=== PATIENT | female | born 1980 | race Caucasian/White ===

== ENCOUNTER 2021-08-27 20:53 | Inpatient (IN) | payer OTHER ==
[~2021-08-27] VITALS: Ht 170.2 cm; Wt 81.0 kg
[~2021-08-27 20:53] MED LIST: CEPHALEXIN500 MG PO; IBUPROFEN200 M1 PO; TRAMADOL HCL50 MG PO
[2021-08-27] MEDS ORDERED: CLEOCIN HCL300 MG PO (21:19)
--- NOTE | 2021-08-27 23:39 | NUR ---
REPORT RECIEVED FROM PATRIC WHATLEY. PATIENT IS BEING TRANSPORTED TO THE CRITICAL CARE UNIT.
--- NOTE | 2021-08-28 00:42 | NUR ---
PATIENT ASSESSMENT COMPLETE. BOLUS OF LR RUNNING AT 500 MLS/HR. VANCO RUNNING AT 270 MLS/HR. IV SITES PATENT. PATIENT IS ALERT AND ORIENTED X4. LUNG SOUNDS ARE CLEAR THROUGHOUT. OXYGEN SATURATIONS AND RR ARE WNL. HEART RATE IS SINUS TACH AND PATIENT IS AFEBIRLE. DENIES SHORTNESS OF BREATH. PATIENT IS IN 9/10 PAIN FROM LEFT FOOT. LEFT FOOT HAS 2+ PITTING EDEMA. 11 CM REDDENED AREA. SKIN INTACT AND DRY. PICTURE OF WOUND IN THE CHART. CMST INTACT. PRN TORADOL GIVEN FOR PAIN. URINE IS CLEAR AND YELLOW. PATIENT DENIES NASEAU. BOWEL TONES ARE ACTIVE. PATIENT EDUCATED ON DIABETES. PATIENT STATES SHE HAS NOT TAKEN HER ORAL DIABETICS FOR OVER A YEAR NOW. BLOOD SUGAR WAS 344 AND GIVEN INSULIN PER SLIDING SCALE. PLAN OF CARE UPDATED. NO QUESTIONS AT THIS TIME. CALL LIGHT WITHIN REACH NO FUTHER NEEDS.
--- NOTE | 2021-08-28 04:00 | NUR ---
PATIENT ASSESSMENT COMPLETE. LR RUNNING AT 125 MLS/HR. BLOOD SUGAR WAS WNL. ALERT AND ORIENTED X4. LUNG SOUNDS ARE CLEAR THROUGHOUT. RR AND OXYGEN SATURATIONS ARE WNL. DENIES SHORTNESS OF BREATH. PATIENT COMPLAINS OF 8/10 PAIN IN LEFT FOOT. PRN TYLENOL GIVEN. PATIENT ALSO IS FEELING NAUSEOUS. PRN ZOFRAN GIVEN. PATIENT LEFT FOOT HAS GENERALIZED EDEMA. PULSES FELT STRONG. CALF TENDERNESS NOTED. AREA IS STILL REDDENED. CMST INTACT. AFEBRILE. URINE OUTPUT IS CLEAR AND YELLOW. BOWEL TONES ACTIVE. PLAN OF CARE UPDATED. NO QUESTIONS AT THIS TIME. CALL LIGHT WITHIN REACH NO FUTHER NEEDS.
--- NOTE | 2021-08-28 06:00 | NUR ---
PATIENT RESTING IN BED. BREATHING IS EQUAL AND UNLABORED. PATIENT SAYS PAIN AND NASEAU HAVE DECREASED. CALL LIGHT WITHIN REACH NO FUTHER NEEDS.
--- NOTE | 2021-08-28 07:23 | NUR ---
PATIENT IS DIAPHORETIC. LINENS CHANGED. PATIENT UP AND MOVING EASILY.
--- NOTE | 2021-08-28 07:57 | NUR ---
REPORT RECEIVED FROM CHIP SPIVEY. PT AWAKE SITTING UP IN BED. PT ASKED IF SHE IS HAVING ANY PAIN RIGHT NOW, SHE STATES, "NO, ITS NOT TOO BAD RIGHT NOW." PT GIVEN MENU AND INSTRUCTIONS FOR ORDERING BREAKFAST.
--- NOTE | 2021-08-28 08:10 | NUR ---
ASSESSMENT DONE, PT HAS LEFT LEG ELEVATED ON PILLOWS. CMS INTACT, REDNESS NOTED TO LLE WITH AREA MARKED BY PATIENT. IVF INFUSING. PT DENIES NEED FOR PAIN MEDICATION AT THIS TIME.
--- NOTE | 2021-08-28 09:41 | NUR ---
IN TO GIVE PT HER BREAKFAST, PT SITTING UP IN BED WITH LLE ELEVATED STILL. DENIES NEEDS.
--- NOTE | 2021-08-28 12:15 | NUR ---
PT GIVEN 15MG TORADOL FOR 7/10 LLE PAIN, LEG REMAINS ELEVATED UP ON PILLOWS.
--- NOTE | 2021-08-28 12:30 | NUR ---
PT SITTING UP TO EAT BREAKFAST, MOTHER IN ROOM TO SEE PT. PT DENIES NEEDS AT THIS TIME.
--- NOTE | 2021-08-28 14:20 | NUR ---
PT UP TO BATHROOM WITH ASSIST, HR UP TO 120'S WHILE UP. VOIDED 900ML THEN BACK TO BED.
--- NOTE | 2021-08-28 15:30 | NUR ---
INTO PATIENT ROOM. PATIENT RESTING IN BED WATCHING TV. PATIENT STATES SHE LIVES IN A HOME WITH HER SO SCOUT AND HER CHILDREN. PATIENT DENIES ANY NEED FOR DME. PATIENT STATES HER MOTHER AISHA ([phone]) IS CURRENTLY VISITING FROM [place]. PATIENT DENIES ANY FINANCIAL NEEDS AT THIS TIME. PATIENT STATES SHE HAS SEEN [facility] IN THE PAST, BUT HAS NOT SEEN A PRIMARY IN SOME TIME. ADVISED PATIENT THAT SHE WILL NEED TO FOLLOW UP WITH A PCP AT DISCHARGE. DEMOGRAPHIC INFORMATION REJI WILL CONTINUE TO FOLLOW UP WITH PATIENT DURING HER VISIT.
--- NOTE | 2021-08-28 16:18 | EKG ---
[facility] [address] [facility] [place], [place] [address] Signed Sinus tachycardia Otherwise normal ECG No previous ECGs available Confirmed by DHEERAJ SCHULTZ MD ([id number]) on 08/28/2021 4:18:16 PM Electronically Signed By: DHEERAJ SCHULTZ MD 08/28/21 1618 PATIENT NAME: JAROCHO RICHARD Electrocardiogram DATE OF : 82 PHYSICIAN: DHEERAJ SCHULTZ MD REPORT #: [id number] REPORT IS CONFIDENTIAL AND NOT TO BE RELEASED WITHOUT AUTHORIZATION
--- NOTE | 2021-08-28 16:48 | NUR ---
PT UP TO VOID THEN BACK TO BED, TYLENOL GIVEN, MOTHER AT BEDSIDE.
--- NOTE | 2021-08-28 16:51 | NUR ---
MED REC COMPLETE
--- NOTE | 2021-08-28 18:45 | NUR ---
New admit to medical floor from CCU. Patient alert and oriented x4. Patient reports pain is tolerable. IV patent. Patient oriented to room and call light.
--- NOTE | 2021-08-28 19:20 | NUR ---
REPORT RECEIVED FROM DAY SHIFT RN. PT LYING IN BED ALERT AND ORIENTED. LEFT LEG ELEVATED ON PILLOWS. UP TO BR WITH SBA. GAIT STEADY. PT WILL CALL WHEN READY TO GO BACK TO BED. WHITE BOARD UPDATED.
--- NOTE | 2021-08-28 19:41 | NUR ---
CALL LIGHT ANSWERED. SBA WITH FWW FROM RESTROOM TO BED 250 ML VOID AND MEDIUM SOFT BM. pt CHANGED TO SHORTS, TANK TOP AT THIS TIME FOR COMFORT. TEMPERATURE IN ROOM ADJUSTED. ICE WATER REFILLED. IV SITE FLUSHED WNL, IVF INFUSING. CALL LIGHT IN REACH.
--- NOTE | 2021-08-28 22:00 | NUR ---
EVENING ASSESSMENT COMPLETE. SCHEDULED MEDS ADMINISTERED PER EMAR. PT REPORTS PAIN IS TOLERABLE, DOES NOT WANT PRN FOR PAIN AT THIS TIME. DENIES NAUSEA. LLE ELEVATED ON PILLOWS. SKIN RED AND WARM. NO OPEN AREAS NOTED. RESTING HR 100'S. PT AFEBRILE. PT DENIES QUESTIONS OR CONCERNS. FRESH DRINKS PROVIDED. CALL LIGHT IN REACH.
--- NOTE | 2021-08-29 00:11 | NUR ---
ANSWERED CALL LIGHT. SBA TO THE BATHROOM AND BACK TO BED USING WALKER. PATIENT C/O HEADACHE AND FOOT HURT. PRIMARY RN DUONG NOTIFIED.
--- NOTE | 2021-08-29 00:28 | NUR ---
HAND BLOCKER REPORTS TO THIS RN PT C/O LEFT FOOT AND HEADACHE PAIN. PRN ADMINISTERED FOR PAIN PER EMAR. LLE ELEVATED. NO FURTHER NEEDS.
--- NOTE | 2021-08-29 02:13 | NUR ---
IV ABX INFUSING WNL. SLIDING SCALE INSULIN ADMINISTERED FOR BS 200. PT REPORTS SHE IS RESTING WELL. DENIES PAIN OR NAUSEA. NO FURTHER NEEDS AT THIS TIME.
--- NOTE | 2021-08-29 04:59 | NUR ---
PT RESTING IN BED WITH EYES CLOSED. RESPIRATIONS EVEN. CALL LIGHT IN REACH.
--- NOTE | 2021-08-29 06:45 | NUR ---
VS AND I&O COMPLETE. PRN FOR PAIN ADMINISTERED PER EMAR FOR 03/18 LLE/HEADACHE PAIN. LLE ELEVATED ON PILLOWS. REDNESS, EDEMA, AND WARMTH NOTED. UNCHANGED FROM PREVIOUS ASSESSMENT. FRESH WATER PROVIDED. PT DENIES FURTHER NEEDS. CALL LIGHT IN REACH.
--- NOTE | 2021-08-29 08:55 | NUR ---
Toradol 30mg IVP admin for reports of 3/10 left foot pain.
--- NOTE | 2021-08-29 10:40 | NUR ---
PATIENT IN BED WATCHING TV, FAMILY IN ROOM. VITALS AND I&O'S CHARTED. FRESH WATER GIVEN. CALL LIGHT IN REACH. NO FURTHER NEEDS AT THIS TIME.
--- NOTE | 2021-08-29 11:24 | NUR ---
Patient resting in bed with left foot elevated. Patient reports her pain is tolerable in LLE. LLE continues to be swollen and red. IV site patent. Fluids infusing per provider order. Patient has no needs. Personal supplies and call light within reach.
--- NOTE | 2021-08-29 13:09 | NUR ---
PT ALERT, ORIENTED AND SITTING UP IN BED WATCHING TV.PT IS PLEASANT, HAS NEVER DEALT WITH THIS BEFORE. GAVE ENCOURAGEMENT, G.POST AND WILL FOLLOW NEEDED
--- NOTE | 2021-08-29 14:07 | NUR ---
PATIENT IN BED RESTING. VITALS AND I&O'S CHARTED. CALL LIGHT IN REACH. NO FURTHER NEEDS AT THIS TIME.
--- NOTE | 2021-08-29 17:00 | NUR ---
Spoke with pt and needs at this time are for a PCP and glucometer. [facility] by Daryl Chawla. She is aware he has moved. She would like to see Dr. Hurst and I will fax her chart and request she can establish care with him. Chart faxed to [facility]. Will follow up tomorrow. Called Nir in Pharm as pt is Type II diabetic and in need of a glucometer. He will see her and give her one.
--- NOTE | 2021-08-29 17:48 | NUR ---
Toradol 30mg ivp admin for reports of 7/10 LLE/headache pain.
--- NOTE | 2021-08-29 19:22 | NUR ---
REPORT RECEIVED FROM DAY SHIFT RN. PT LYING IN BED ALERT AND ORIENTED. DENIES NEEDS AT THIS TIME. CALL LIGHT IN REACH. WHITE BOARD UPDATED.
--- NOTE | 2021-08-29 19:59 | NUR ---
EVENING ASSESSMENT COMPLETE. IV ABX INFUSING WNL. PT DENIES PAIN WITH INFUSION. REPORTS PAIN IS TOLERABLE AT THIS TIME. DENIES NAUSEA. LLE ELEVATED ON PILLOWS. REDNESS, WARMTH, AND EDEMA NOTED. CMS INTACT. TEMP 98.9. HR 100'S. PT DENIES QUESTIONS OR CONCERNS. CALL LIGHT IN REACH.
--- NOTE | 2021-08-30 00:10 | NUR ---
PT RESTING IN BED WITH EYES CLOSED. RESPIRATIONS EVEN. CALL LIGHT IN REACH.
--- NOTE | 2021-08-30 02:13 | NUR ---
PT UP TO BR WITH FWW TO VOID AND HAVE MEDIUM SOFT BM. GAIT STEADY. BACK TO BED. PRN FOR LEFT FOOT/HEADACHE PAIN ADMINISTERED PER EMAR. IV ABX INFUSING INFUSING WNL. PT DENIES PAIN WITH INFUSION. WARM BLANKET AND FRESH WATER PROVIDED. PT DENIES FURTHER NEEDS. CALL LIGHT IN REACH.
--- NOTE | 2021-08-30 04:00 | NUR ---
IV ABX COMPLETE. PT SL PER ORDER. PT UP TO AMB ONCE AROUND NURSING UNIT WITH FWW. GAIT STEADY. PATRICK WELL. BACK TO BED. NO FURTHER NEEDS.
--- NOTE | 2021-08-30 06:08 | NUR ---
VS AND I&O COMPLETE. TEMP 99.0. PT DENIES PAIN AT THIS TIME. LLE ELEVATED ON PILLOWS. NO FURHTER NEEDS. CALL LIGHT IN REACH.
--- NOTE | 2021-08-30 07:05 | NUR ---
this rn received report from thaddeus alcala. pt appears to be resting with respirations noted
--- NOTE | 2021-08-30 08:02 | NUR ---
PATIENT IS SLEEPING IN BED. DID NOT DISTURB AT THIS TIME. CALL LIGHT IN REACH.
--- NOTE | 2021-08-30 08:29 | NUR ---
this rn in pts room to give morning insulin. pt resting but awakens nicely. all needs met this am.
--- NOTE | 2021-08-30 09:25 | NUR ---
THIS RN IN PTS ROOM TO GIVE PT HER DOSE OF VANCO. PT SITTING UP IN BED. PT REPORTS THAT HER PAIN IS 5/10 IN HER LEFT FOOT, THIS LEVEL IS TOLERABLE FOR PT AND SHE IS NOT REQUESTING PAIN MEDS AT THIS TIME. PTS FOOT APPEARS RED AND SLIGHTLY SWOLLEN, PT REPORTS THAT IT LOOKS IMPROVED AT THIS TIME. PT REQUESTING A SHOWER FOR AFTER THE INFUSION. THIS CAN BE ARRAGNGED. PT HAS NO OTHER STATED NEEDS AT THIS TIME. CALL LIGHT WITHIN REACH
--- NOTE | 2021-08-30 11:45 | NUR ---
byron Schroeder scheduled with Dr. Hurst for SaturdaySep 04 at 1 pm to establish care. Pharmacy will provide a glucometer for her. She denies needs states she is feeling better.
--- NOTE | 2021-08-30 12:53 | NUR ---
PATIENT TOOK A SHOWER AND IS BACK RESTING IN BED. ATE 100% OF HER LUNCH. FRESH ICE WATER RECIEVED. SHE DOES NOT NEED ANYTHING ELSE AT THIS TIME. CALL LIGHT IN REACH.
--- NOTE | 2021-08-30 14:00 | NUR ---
THIS RN IN PTS ROOM TO GIVE SCHEDULED VANCO. PT APPEARS TO BE RESTING BUT AWAKENS TO DOOR OPENING. PT STATES THAT SHE IS DOING WELL JUST SLEEPY. THIS RN STARTED INFUSION, IV FLUSHES WELL, PROVIDED PT WITH WARM BLANKET AROUND IV SITE DUE TO PT STATING THAT SHE GETS COLD WITH THE REFRIGERATED FLUIDS. PT STATES THAT SHE IS DOING WELL OTHERWISE AND NO OTHER NEEDS NOTED.
--- NOTE | 2021-08-30 14:10 | NUR ---
PT LAYING IN BED 0N R.SIDE, WANTING TO REST. GAVE BLESSING, WILL FOLLOW
--- NOTE | 2021-08-30 16:45 | NUR ---
BLOOD SUGARS TAKEN. THIS RN EDUCATED ABOUT DOSING. PTS MOM AT BEDSIDE- ALL QUESTIONS ANSWERED TO THE BEST OF THIS RNS ABILITY
--- NOTE | 2021-08-30 17:05 | NUR ---
MEDS GIVEN AT THIS TIME. PT HAS NO NEEDS NOTED AT THIS TIME.
--- NOTE | 2021-08-30 19:48 | NUR ---
REPORT RECEIVED FROM PATRIC PINA. pt RESTING IN BED. C/O [place], LEFT FOOT PAIN 01/16. PRN TORADOL ADMINISTERED AT THIS TIME. IV SITE FLUSHED AND SL WNL. CALL LIGHT IN REACH. NO ADDITIONAL REQUESTS.
--- NOTE | 2021-08-30 20:48 | NUR ---
pt AWAKE RESTING IN BED. DENIES PAIN AT REST. IV SITE FLUSHED WNL IV ANTIBIOTIC INFUSING ORDERED. CBG WNL. ASSESSMENT COMLETE. LLE FOOT HOT TO TOUCH. SOME REPORTED NUMBNESS IN TOES, pt STATES IS CHRONIC. URINE DUMPED FROM HAT. CALL LIGHT IN REACH.
--- NOTE | 2021-08-30 22:50 | NUR ---
CALL LIGHT ANSWERED. IV ANTIBIOTIC COMPLETE. IV SL WNL. CALL LIGHT IN REACH. NO REQUESTS AT THIS TIME. pt IS AWAKE WATCHING TV.
--- NOTE | 2021-08-31 02:24 | NUR ---
pt SLEEPING, AWAKENS TO VOICE FOR IV ANTIBIOTIC ADMINISTRATION. IV SITE FLUSHED WNL. IV ANTIBIOTIC INFUSING ORDERED. pt INSTRUCTED TO NOTIFY RN IF ANY PAIN OR LEAKING AT IV SITE, VERBALIZES UNDERSTANDING. ASSESSMENT COMPLETE. NUMBNESS RESOLVED IN LEFT TOES PER pt. CAP REFILL WNL. LEFT FOOT HOT TO TOUCH, EDEMA IMPROVED. LEG ELEVATED ON PILLOWS. URINE EMPTIED FROM HAT. CALL LIGHT IN REACH.
--- NOTE | 2021-08-31 04:01 | NUR ---
CALL LIGHT ANSWERED. IV ANTIBIOTIC COMPLETE. pt C/O NAUSEA. NIO MEDICATION FOR SL ZOFRAN PLACED.
--- NOTE | 2021-08-31 04:08 | NUR ---
PRN NAUSEA MEDICATION ADMINISTERED. pt REQUESTING SNACK, YOGURT PROVIDED. CALL LIGHT IN REACH. NO ADDITIONAL REQUESTS.
--- NOTE | 2021-08-31 06:34 | NUR ---
PT. VITALS AND IS AND OS CHARTED ACCORDINGLY. ROOM TIDIED, TRASH EMPTIED, CALL LIGHT LEFT WITHIN REACH, NO OTHER IMMEDIATE NEEDS AT THIS TIME.
--- NOTE | 2021-08-31 07:30 | NUR ---
Shift report received from PATRIC Martinez, pt resting in bed safely w/ call light in reach, no needs at this time
--- NOTE | 2021-08-31 10:00 | NUR ---
Pt sitting up in bed eating breakfast, w/ call light in reach. Morning assesment complete, scheduled meds given, and IV abx hung and infusing per provider order. Pt c/o L foot pain and headache 5/10, PRN pain meds given per request. No further needs at this time
--- NOTE | 2021-08-31 12:00 | NUR ---
Pt sitting up in bed eating lunch w/ call light in reach, no needs at this time
--- NOTE | 2021-08-31 13:00 | NUR ---
PT LAYING IN BED ON R.SIDE WATCHING TV. PT IS ALERT AND ORIENTED AND SEEMS TO BE TAKING EVERYTHING IN STRIDE. WAITING FOR CONSULT WITH DR HATHAWAY. GAVE BLESSING AND WILL FOLLOW
--- NOTE | 2021-08-31 14:00 | NUR ---
Pt resting in bed safely w/ call light in reach, pt denies any needs at this time. Afternoon dose of IV Vanco held due to high trough results.
--- NOTE | 2021-08-31 16:10 | NUR ---
Pt called stating she is feeling nauseous and clamy. CBG 67, pt given a cup of juice, granola bar, peanut butter, and PRN Zofran. Will recheck CBG in 15 min. Pt resting in bed safely w/ call light in reach
--- NOTE | 2021-08-31 16:21 | NUR ---
No change in plan of care.
--- NOTE | 2021-08-31 16:36 | NUR ---
CBG rechecked 113, pt states she feels much better, resting in bed safely w/ call light in reach, no further needs at this time
--- NOTE | 2021-08-31 18:00 | NUR ---
Pt sitting up in bed w/ call light in reach. Pt denies any needs at this time.
--- NOTE | 2021-08-31 19:10 | NUR ---
BEDSIDE REPORT FROM GIL Anderson RN, PT RESTING IN BED WITH MOIST HEAT TO LEFT LATERAL FOOT PER ORDER. NOTED THAT PT DOES NOT APPEAR TO HAVE ANY DISTRESS AT THIS TIME. HER MOTHER IS AT BEDSIDE. PT AND HER MOTHER WANTED TO DISCUSS CARE PLAN, DID SO, WILL ROUND IN THE AM TO REASSESS LEFT FOOT FOR POSSIBLE NEED TO I&D.
--- NOTE | 2021-08-31 21:20 | NUR ---
IN TO GET VITALS, NO FURTHER NEEDS AT THIS TIME
--- NOTE | 2021-08-31 21:29 | NUR ---
BLOOD SUGAR CHECK AT BEDSIDE, PT ALERT AND ORIENTED AT THIS TIME, HER MOTHER IS AT BEDSIDE. NO DISTRESS NOTED, WARM COMPRESS OFF AT THIS TIME.
--- NOTE | 2021-08-31 21:58 | NUR ---
CALL LIGHT ON. ANTIBIOTIC INFUSION COMPLETED. SL, pt UP TO VOID AND BACK TO BED. SBA FWW. LIGHT YELLOW URINE. NEXT ANTIBIOTIC INFUSING PER ORDERS. CALL LIGHT WITHIN REACH. PROVIDED WITH WARM BLANKET.
--- NOTE | 2021-08-31 22:30 | NUR ---
PT CONCERNED ABOUT BEING NPO AT MIDNIGHT, SHE ASKED IF SHE CAN HAVE SOMETHING TO EAT BEFORE MIDNIGHT, SHE HAS BEEN GIVEN A LUNCH BOX MEAL AT THIS TIME.
--- NOTE | 2021-08-31 23:10 | NUR ---
WARM COMPRESS REPLACED AT 2230.
--- NOTE | 2021-08-31 23:39 | NUR ---
CALLED TO ENSURE PT IS MADE NPO AT MIDNIGHT.
--- NOTE | 2021-09-01 | NUR ---
ALL LIQUIDS AND FOOD AT BEDSIDE REMOVED AT THIS TIME, PT ALERT TO RN IN ROOM, SHE VERBALIZED NO NEEDS AT THIS TIME.
--- NOTE | 2021-09-01 04:27 | NUR ---
PT UP TO BATHROOM, ABX INFUSION STARTED, PT REPORTS HER LEFT FOOT IS MOREPAINFUL THAN IT HAS BEEN SINCE ADMISSION, TYLENOL ADMINISTERED WITH SIP OF WATER, WILL MONITOR FOR AFFECTIVENESS.
--- NOTE | 2021-09-01 06:18 | NUR ---
PT HAS BEEN UP INTERMITTENT TO VOID IN BATHROOM WITH FWW. SHE HAS HAD PRN TYLENOL THIS AM FOR PAIN 5/10, SHE HAS HAD 3 OF 4 WARM MOIST HEAT PACKS IN THE FORM OF WARM WASH CLOTH PLACED TO LEFT LATERAL FOOT. WILL PLACE 4TH PER ORDERS BY THE END OF THIS SHIFT. THE LEFT LATERAL RED AREA APPEARS TO BE DEEPER RED THIS AM, PT REPORTS INCREASE IN PAIN. PT HAS SLEEP WELL LATER HALD OF SHIFT. SHE HAS BEEN NPO SINCE MIDNIGHT OTHER THAN TYLENOL WITH SIP OF WATER AT 0400.
--- NOTE | 2021-09-01 08:30 | NUR ---
REPORT RECEIVED FROM NIGHT RN AND PT. CARE RESUMED. PT. IS ALERT AND ORIENTED. +1 EDEMA PRESENT TO LATERAL LEFT FOOT WITH REDNESS. PT. PREPPED FOR PROCEDURE. CONSENT SIGNED.
--- NOTE | 2021-09-01 09:15 | NUR ---
Pt has not returned from surgery.
--- NOTE | 2021-09-01 09:32 | NUR ---
09/01/21 0932 Holly Cee 0917 PT ARRIVED IN PACU NON RESPONSIVE TO NOXIOUS STIMULI WITH OPA IN PLACE. CHIN LIFT HELD BY RN. 0929 PT REACTIVE. OPA REMOVED.
--- NOTE | 2021-09-01 10:11 | NUR ---
PT. ARRIVED BACK TO ROOM VIA STRETCHER. REPORT RECEIVED. SHE AMBULATED FROM THE STRETCHER TO THE BATHROOM AND TOLERATED WELL. SHE REPORTS MODERATE, TOLERABLE PAIN IN THE LEFT FOOT. GAUZE DRESSING IS CDI. VITALS STABLE.PT ON ROOM AIR. IV WNL AND FLUSHES WELL.
--- NOTE | 2021-09-01 11:18 | NUR ---
PT. DENIES PAIN AT THIS TIME. GAUZE DRESSING IS CDI ON LEFT LATERAL FOOT. +1 EDEMA PRESENT. VITALS STABLE. PT. DENIES FURTHER NEEDS AND LEFT RESTING WITH CALL LIGHT IN REACH.
--- NOTE | 2021-09-01 12:05 | NUR ---
PT HAS RETURNED FROM SURGERY. SHE IS ALERT AND ORIENTED AND EATING MEAL.PT HAS FAMILY AT , HAS GREAT ATTITUDE. LEFT COLORING BOOK AND GAVE BLESSING. WILL FOLLOW NEEDED
[2021-09-01] MEDS ORDERED: BACTRIM DS TAB1 EACH PO (12:52)
[2021-09-01] MEDS ORDERED: BASAGLAR K100 UNIT/1 SUB-Q (12:53)
[2021-09-01] MEDS ORDERED: NOVOLOG FL100 UNIT/1 SUB-Q (12:54)
[2021-09-01] MEDS ORDERED: BLOOD GLUCOSE1 EAC1 MISC (12:56)
[2021-09-01] MEDS ORDERED: BLOOD GLUCOSE1 EAC8 MISC (12:56)
[2021-09-01] MEDS ORDERED: ACCU-CHEK1 EAC1 MISC (12:57)
[2021-09-01] MEDS ORDERED: INSULIN PEN NE1 EAC2 MISC (12:57)
--- NOTE | 2021-09-01 14:07 | NUR ---
ALL DISCHARGE AND WOUND CARE INSTRUCTIONS REVIEWED WITH PT AND QUESTIONS ANSWERED. PT. LEFT VIA WHEELCHAIR WITH ALL BELONGINGS WITH ANILINE PRESS WORKER AND MOTHER. VITALS STABLE AND WOUND DRESSING C.D.I. PT. DENIES PAIN.
--- NOTE | 2021-09-06 13:21 | OR ---
[facility] [address], [place] [address] Signed DATE OF OPERATION: 09/01/2021 SURGEON: Roosevelt Hathaway MD PREOPERATIVE DIAGNOSIS: Left forefoot cellulitis, possible abscess. POSTOPERATIVE DIAGNOSIS: Abscess of left anterolateral forefoot. PROCEDURES: 1. Exam under anesthesia. 2. Incision and drainage of abscess of left forefoot and placement of drain. ANESTHESIA: General LMA, Roosevelt Cabello CRNA INDICATIONS: This 40-year-old woman has been admitted by Dr. Schultz since August 27, 2021. She is admitted with significant left lower extremity cellulitis. As improvement of her clinical findings of cellulitis has occurred, there appears to be a soft area possibly fluctuant in the left anterolateral forefoot. Warm compresses were applied yesterday with leg elevation and today. The area does appear to be likely an abscess. I have recommended incision and drainage of the site and other indicated procedures as necessary. She agrees to this. She understands the risks of bleeding, infection, failure to cure the infection and other unforeseen complications, particularly given her underlying diabetes. She understands and she wished to proceed. FINDINGS: Indeed there was a purulent collection. Edema of the forefoot was partially relieved with drainage of the abscess. A counter incision allowed for placement of yellow vessel loop drain. Irrigation was undertaken until clear. Gram stain and cultures were obtained as well. DESCRIPTION OF PROCEDURE: The patient was brought to the operating room and given a general LMA type anesthetic. The left lower extremity was prepared with a Betadine solution and draped sterilely. Palpation of the area of erythema and possible fluctuance was undertaken and a small incision made with a #15 blade. Entry into the subcutaneous perifascial space allowed for egress of copious amounts of purulent material. Gram-stain and cultures were Electronically Signed By: ROOSEVELT HATHAWAY MD 09/06/21 1321 PATIENT NAME: JAROCHO RICHARD OPERATIVE REPORT DATE OF : 82 REPORT #: [id number] PHYSICIAN: ROOSEVELT HATHAWAY MD PCP: BOB DE LA O MD REPORT IS CONFIDENTIAL AND NOT TO BE RELEASED WITHOUT AUTHORIZATION [facility] [address], [place] [address] Signed obtained. A counter incision was made more proximally and a yellow vessel loop drawn through the wound. Wound was tied in a loop and elevated and irrigation undertaken with sterile saline solution until clear. The edema of the foot was gently milked free of its edema. A gauze dressing was applied as was a Kerlix gauze. The patient was ultimately allowed to emerge from anesthesia, extubated, and taken to the recovery room in good condition. MD REJI Ceja/CHAUNCEY /[id number] cc: MD Yocasta Corona FNP Copies: DHEERAJ SCHULTZ MD, JULIE FNP ~ Electronically Signed By: ROOSEVELT HATHAWAY MD 09/06/21 1321 PATIENT NAME: JAROCOH RICHARD OPERATIVE REPORT DATE OF : 82 REPORT #: [id number] PHYSICIAN: ROOSEVELT HATHAWAY MD PCP: BOB DE LA O MD REPORT IS CONFIDENTIAL AND NOT TO BE RELEASED WITHOUT AUTHORIZATION
--- NOTE | 2021-09-06 13:21 | CONS ---
[facility] [address], [place] [address] Signed DATE OF CONSULTATION: 08/31/2021 TIME: 6:00 p.m. REQUESTING PHYSICIAN: Dr. Rodgers. PROBLEM: Left forefoot possible fluid collection, recent cellulitis. HISTORY OF PRESENT ILLNESS: This 40-year-old woman has been admitted since August 27 with cellulitis of the anterolateral aspect of her forefoot. Review of her notes confirm her presentation to urgent care, who thought she had a "bug bite." She presented to the emergency room, was noted to have clear evidence of cellulitis generally speaking. She is admitted by Dr. Rodgers on August 28. IV antibiotics were initiated and she has had marked improvement overall of her left lower extremity cellulitis. Dr. Rodgers's clinical examination today shows her to have a focal erythematous spot on the anterolateral aspect of the forefoot, not far from the ankle with concerns that this may represent an undrained fluid (abscess). Review of her lab studies show her initial white count on August 27 at 2130 hours was 17.6, now down to 15.2. Her medications currently administered have included vancomycin antibiotic as well as ceftriaxone. She has not been transitioned to an oral antibiotic. It is notable that she has insulin-dependent diabetes mellitus. She has no other known immunosuppressant comorbidity, however. She has not had a prior foot infection that she is aware of. She has had no fever or chills since hospitalization. Notably, she presented to the hospital, having been placed on clindamycin 300 mg p.o. q.i.d. initially as an outpatient. REVIEW OF SYSTEMS: Denies any shortness of breath or chest pain. She has had no dysphagia or dysuria. As regards to her left forefoot, the pain is markedly improved. She has not used any moist heat on the area at this point. PHYSICAL EXAMINATION: GENERAL: Pleasant woman, who looks to be in no significant distress at this time. Electronically Signed By: ROOSEVELT HATHAWAY MD 09/06/21 1321 PATIENT NAME: JAROCHO RICHARD CONSULTATION DATE OF : 82 REPORT #: [id number] PHYSICIAN: ROOSEVELT HATHAWAY MD PCP: BOB DE LA O MD REPORT IS CONFIDENTIAL AND NOT TO BE RELEASED WITHOUT AUTHORIZATION [facility] [address], [place] [address] Signed VITAL SIGNS: Temperature is 98.2, pulse is 116, earlier today 101, blood pressure 121/67. EXTREMITIES: exam to the left lower extremity shows no sign of generalized leg edema and Sheldon's sign is negative. She has a 2/3 dorsalis pulse. On the forefoot inferior to the ankle joint and the lateral aspect, there is an area of inflammation and gentle palpation shows doughy changes. There is no "head" of an abscess and although mildly tender locally, does not have findings of distinct abscess at the moment. Tendons are palpably normal. Forefoot flexion does not induce tenderness nor does plantar flexion. ASSESSMENT: The patient is markedly improved from her initial complaint of lower extremity cellulitis. She still has an elevated white count, however. The possibility of undrained fluid is certainly notable in this area. At this point, I would recommend moist hot compress to the area and re-evaluation tomorrow morning. If she still has findings suggestive of undrained fluid collection, incision and drainage area would be appropriate. This may be diagnostically performed simply with a bedside aspiration with a large bore needle after local anesthesia. The possibility of placement of a drain in this way is also consideration as well. It is noted that the anatomy of the forefoot is one of "tight spaces" and as she has no clear evidence of tendon infection in any way, her current findings may simply be reflective of resolving edema from her cellulitis itself. MD REJI Ceja/CHAUNCEY /[id number] cc: TORI Banegas MD Copies: DARLING ODEN LOHITH VEERAPPA MD ~ Electronically Signed By: ROOSEVELT HATHAWAY MD 09/06/21 1321 PATIENT NAME: JAROCHO RICHARD CONSULTATION DATE OF : 82 REPORT #: [id number] PHYSICIAN: ROOSEVELT HATHAWAY MD PCP: BOB DE LA O MD REPORT IS CONFIDENTIAL AND NOT TO BE RELEASED WITHOUT AUTHORIZATION
== END 2021-09-01 14:05 | disposition home or self-care (01) | DRG 872 ==
LOC: ED 20:53 → CCU 20:55 → MS 08-28 09:25 → CCU 08-28 09:25 → MS 08-28 17:55
PROVIDERS: Surgery; ADMIT Internal Medicine; ATTEND Internal Medicine
PROC: 0J9R0ZZ Drainage of Left Foot Subcutaneous Tissue and Fascia, Open Approach (ICD-10-PCS; principal; 2021-09-01 09:02)
DX: A41.02 Sepsis due to Methicillin resistant Staphylococcus aureus (principal); L03.116 Cellulitis of left lower limb; E11.65 Type 2 diabetes mellitus with hyperglycemia; Z20.822 Contact with and (suspected) exposure to COVID-19; Z90.710 Acquired absence of both cervix and uterus; Z87.891 Personal history of nicotine dependence; Z79.2 Long term (current) use of antibiotics; Z91.14 Patient's other noncompliance with medication regimen
CPT/HCPCS: 01480; 71045; 80048; 80053; 80202; 81001; 82565; 83036; 83605; 84520; 85025; 87040; 87070; 87077; 87186; 87205; 93005; 93010; 96374; 96375; 99284-25; A9270; C9803; G0378; J0330; J0696; J1100; J1650; J1815; J1885; J2250; J2405; J2704; J2765; J3010; J3370; J7030; J7060; J7121; U0003

== ENCOUNTER 2025-05-28 19:46 | Emergency (ER) | payer BC ==
[~2025-05-28] VITALS: Ht 170.2 cm; Wt 82.2 kg
[~2025-05-28 19:46] MED LIST changes: +ACCU-CHEK1 EAC1 MISC; +BACTRIM DS TAB1 EACH PO; +BASAGLAR K100 UNIT/1 SUB-Q; +BLOOD GLUCOSE1 EAC1 MISC; +BLOOD GLUCOSE1 EAC8 MISC; +CEFDINIR300 MG PO; +CLEOCIN HCL300 MG PO; +GABAPENTIN300 MG PO; +INSULIN PEN NE1 EAC2 MISC; +LOSARTAN POTASS50 MG PO; +NOVOLOG FL100 UNIT/1 SUB-Q
[2025-05-28] MEDS ORDERED: NEOMYCIN/POLYMYXIN/HYDROCORT 10 ML HOME.PACK OTIC ONE (20:30)
[2025-05-28 20:39] VITALS: BP 157/90
== END 2025-05-28 20:40 | disposition home or self-care (01) ==
LOC: ED 19:46
DX: H60.91 Unspecified otitis externa, right ear (principal); E11.9 Type 2 diabetes mellitus without complications; I10 Essential (primary) hypertension; Z87.891 Personal history of nicotine dependence; Z88.0 Allergy status to penicillin; Z88.8 Allergy status to other drugs, medicaments and biological substances; Z79.4 Long term (current) use of insulin; Z79.899 Other long term (current) drug therapy
CPT/HCPCS: 99282